=== PATIENT | male | born 1990 | race Caucasian/White ===

== ENCOUNTER 2020-05-26 18:18 | Emergency (ER) | payer MEDICAID, SELFPAY ==
[2020-05-26 18:19] VITALS: BP 158/83; PULSE 88; RESP 18; TEMP 36.4; O2SAT 98; BMI 31.6
[2020-05-26 20:06] VITALS: BP 158/83; PULSE 88; RESP 18; TEMP 36.4; O2SAT 98
--- NOTE | 2020-05-26 20:38 | ED.DCSUM_ITS ---
- ER Visit Summary Date of Service: 05/26/20 Chief Complaint: Exposure to syphilis History of Present Illness: The patient is a 30 M presenting due to exposure to syphilis. Patient's girlfriend was diagnosed with syphilis on routine blood work for her . He states that he has had intermittent rash which is itchy over the past year. He denies any painless ulcers. Denies penile discharge. Denies other complaints. Physical Examination: Vitals are stable. Patient is afebrile. Alert no acute distress. HEENT exam is unremarkable. Neck is supple. Lungs are clear and equal bilaterally. Heart is regular rate and rhythm. Abdomen is soft nontender nondistended. : Normal. There are no ulcers or rash. No penile discharge. Extremities are unremarkable. Skin is warm and dry. Remainder of exam is unremarkable. Emergency Department Course and Treatment: RPR was sent. He was given penicillin IM. Advised to follow-up with primary care physician. Advised return the ED for worsening complaints. Disposition: Discharge home Impression: Exposure to syphilis This note was generated with [employer] Free dictation software. It may contain incorrect words, spelling, and punctuation that were not noted in review of the chart prior to signing ED Disposition - Plan for ED Patient: Referrals: Care Physician,No Primary [Primary Care Provider] -
--- NOTE | 2020-05-26 20:40 | ED.DEP ---
ED Disposition - Plan for ED Patient: Instructions: Syphilis Referrals: Freddy Garza MD [STAFF PHYSICIAN] -
[2020-05-26] MEDS: Penicillin G Benzathine 2.4 MU/4 ML Syringe IM (20:55)
[2020-06-02 02:11] LABS: Rapid Plasmin Reagin (RPR) REACTIVE (NONREACTIVE)
== END 2020-05-26 21:49 | disposition home or self-care (01) ==
LOC: ED 20:32
PROVIDERS: Emergency Provider Emergency Medicine
DX: Z20.2 Contact with and (suspected) exposure to infections with a predominantly sexual mode of transmission (principal); Z72.0 Tobacco use
CPT/HCPCS: 86592; 99282